=== PATIENT | male | born 1995 | race Caucasian/White ===

== ENCOUNTER 2016-08-12 18:29 | Emergency (ER) | payer OTHER ==
[2016-08-12 18:39] VITALS: BP 141/78
--- NOTE | 2016-08-12 19:47 | ED Physician Documentation ---
PD HPI BACK INJURY - Stated complaint Stated Complaint: LOW BACK PX - History obtained from History obtained from: Patient - History of Present Illness Location: Right, Lower Type of injury: Twist Where injury occurred: Work Timing - onset: How many weeks ago (2) Timing - duration: Weeks (2) Timing - details: Abrupt onset, Now resolved (he is feeling much better with just mild pain on ROM.) Quality: Pain, Spasm Worsened by: Moving, Other (bending and lifting) Associated symptoms: No: Fever, Weakness, Numbness, Unable to urinate Contributing factors: Work related Similar symptoms before: Has not had sx before Recently seen: Clinic (seen in [facility] 2 weeks ago and had time off work plus meds. Patient referred to another clinic for further care. That clinic did not accept his Insurance and he is trying to get note to allow him back to work.) Review of Systems Constitutional: denies: Fever, Chills Cardiac: denies: Chest pain / pressure, Palpitations Respiratory: denies: Dyspnea, Cough, Wheezing GI: denies: Abdominal Pain, Nausea, Vomiting, Diarrhea : denies: Dysuria, Frequency, Incontinent Skin: denies: Rash, Lesions Neurologic: denies: Focal weakness, Numbness Endocrine: denies: Weight loss PD PAST MEDICAL HISTORY - Past Medical History Past Medical History: No Respiratory: None Neuro: None GI: None : None - Past Surgical History Past Surgical History: No - Present Medications Home Medications: Ambulatory Orders Medication Instructions Recorded Confirmed Methocarbamol [Robaxin] 500 mg PO Q6H PRN #25 tablet 08/12/16 Naproxen [Naprosyn] 500 mg PO BID #20 tablet 08/12/16 Tramadol HCl 50 mg PO Q6H PRN #20 tablet 08/12/16 - Allergies Allergies/Adverse Reactions: Allergies Allergy/AdvReac Type Severity Reaction Status Date / Time No Known Drug Allergies Allergy Verified 12/01/12 15:32 - Social History Does the pt smoke?: No Smoking Status: Never smoker Does the pt drink ETOH?: No Does the pt have substance abuse?: No - Immunizations Immunizations are current?: Yes - POLST Patient has POLST: No PD ED PE NORMAL - Vitals Vital signs reviewed: Yes - General General: Alert and oriented X 3, No acute distress, Well developed/nourished - Abdomen Abdomen: Soft, Non tender - Back Back: No CVA TTP, No spinal TTP, Other (mild tenderness in muscles adjacent to right lower lumbar) - Derm Derm: Normal color, Warm and dry, No rash - Extremities Extremities: No deformity - Neuro Neuro: Alert and oriented X 3, No motor deficit, No sensory deficit, Normal speech, Other (2+DTRs at knees) Results - Vitals Vitals: Oxygen O2 Source Room air PD MEDICAL DECISION MAKING - ED course Complexity details: considered differential (he had low back strain and was off work. Unable to get repeat appt at referral place given. He needs note to return to work. Given note for limited duty, and Rx for meds to help this be successful resumption of work. ), d/w patient Departure - Departure Disposition: Home, Self Care Clinical Impression: Lumbar strain Qualifiers: Encounter type: initial encounter Qualified Code(s): S39.012A - Strain of muscle, fascia and tendon of lower back, initial encounter Condition: Stable Record reviewed to determine appropriate education?: Yes Instructions: ED Sprain Strain Lumbar Follow-Up: Mesfin Bauman MD [Provider Admit Priv/Credential] - Prescriptions: Naproxen [Naprosyn] 500 mg PO BID #20 tablet Methocarbamol [Robaxin] 500 mg PO Q6H PRN #25 tablet PRN Reason: Spasms Tramadol HCl 50 mg PO Q6H PRN #20 tablet PRN Reason: Pain Comments: Heat and stretching for back a few times daily. CHiropractic and massage are good as well. Naproxen twice daily for 7-10 days, and robaxin muscle relaxant to reduce stiffness as returning to work. Return to light duty. Call Ortho tomorrow for follow up for next week. Forms: Activity restrictions Discharge Date/Time: 08/12/16 20:39
[2016-08-12] MEDS ORDERED: DEXAMETHASONE 10 MG/ML VIAL PO STA (20:26)
[2016-08-12] MEDS ORDERED: ACETAMINOPHEN 325 MG TABLET PO STA (20:26)
[2016-08-12] MEDS ORDERED: ACETAMINOPHEN 325 MG TABLET PO ONE (20:28)
[2016-08-12] MEDS ORDERED: DEXAMETHASONE 10 MG/ML VIAL ONE (20:28)
[2016-08-12] MEDS ORDERED: CHERRY SYRUP 10 ML UDC PO ONE (20:28)
== END 2016-08-12 20:39 | disposition home or self-care (01) ==
LOC: ED 18:29
DX: S39.012A Strain of muscle, fascia and tendon of lower back, initial encounter (principal); X50.1XXA Overexertion from prolonged static or awkward postures, initial encounter; Y99.0 Civilian activity done for income or pay
CPT/HCPCS: 99283; A9270